=== PATIENT | female | born 2000 | race Caucasian/White ===

== ENCOUNTER 2023-10-21 21:20 | Emergency (ER) | payer SELFPAY ==
[~2023-10-21] VITALS: Ht 172.7 cm; Wt 57.0 kg
[2023-10-21 21:22] VITALS: BP 121/65; PULSE 76; RESP 16; TEMP 98.5; O2SAT 100
[2023-10-22] MEDS ORDERED: TOPUD MT (03:11)
[2023-10-22] MEDS ORDERED: BO1 TP (03:11)
== END 2023-10-22 04:05 | disposition home or self-care (01) ==
LOC: ER 21:20
DX: S69.91XA Unspecified injury of right wrist, hand and finger(s), initial encounter (principal); S00.81XA Abrasion of other part of head, initial encounter; R51.9 Headache, unspecified; W18.39XA Other fall on same level, initial encounter; Y93.89 Activity, other specified; Y92.89 Other specified places as the place of occurrence of the external cause; Y99.8 Other external cause status
CPT/HCPCS: 73110; 81025; 99284